=== PATIENT | male | born 1935 | race Caucasian/White ===

== ENCOUNTER → 2019-08-29 14:24 | Outpatient (CLI) | payer MEDICARE, OTHER, SELFPAY ==
[2019-08-30 09:55] LABS: COVID19 Sendout Not Detected (Not Detect)
== END ==
PROVIDERS: Visit Provider Student in an Organized Health Care Education/Training Program
DX: Z01.812 Encounter for preprocedural laboratory examination (principal)
CPT/HCPCS: 87635

== ENCOUNTER 2019-09-01 09:09 | Day surgery (SDC) | payer MEDICARE, OTHER, SELFPAY ==
[2019-09-01] MEDS: PROPARACAINE 0.5% OPHTH SOL 2 DROPS EYE-OP (10:21)
[2019-09-01] MEDS: CATARACT EYE COMPOUND (10 DROPS/SYRINGE) 3 DROPS EYE-OP (10:22)
[2019-09-01 10:25] VITALS: BP 137/79; PULSE 75; RESP 20; TEMP 36.2; O2SAT 98; BMI 30.7
--- NOTE | 2019-09-01 10:27 | SUR.OPER ---
Supine on eye stretcher, head on extension cradle secured with tape. Arms tucked at sides with blanket. Pillow under knees.
--- NOTE | 2019-09-01 10:39 | PM.PREOP ---
Pre-operative Note COVID-19 COVID-19 status: Negative Result date/Date tested (Pos, Neg/Pending): 08/29/19 Interval Note History & Physical reviewed/Exam performed by Physician: Yes Changes to H&P: No
[2019-09-01] MEDS: PHENYLEPHRINE/LIDOCAINE VIAL (OR) 0.2 ML EYE-OP (11:10)
[2019-09-01] MEDS: CHONDROIDTIN/SOD HYALURONATE 1.05 ML SYRINGE INTRAOCULA (11:10)
[2019-09-01] MEDS: TETRACAINE 0.5% OPHTH DROPS 4 ML 2 DROPS EYE-OP (11:10)
[2019-09-01] MEDS: BALANCED SALT IRRIG SOLN NO.2 500 ML, EPINEPHrine 1 MG IRR (11:11)
[2019-09-01] MEDS: MOXIFLOXACIN INJ 5 MG/ML VIAL EYE-OP (11:12)
--- NOTE | 2019-09-01 11:30 | PM.OP.1 ---
Procedure & Clinicians Procedure: Cataract extraction with intraocular lens implant, right. Same procedure as scheduled: Yes Indications: Visually significant age related nuclear sclerosis Surgeon: Sami Partida Click Yes if Unassisted: Yes Anesthesia Type: MAC +/- Operative Notes Procedure in detail: The patient was brought to the operating suite. The correct patient, surgical site and lens were confirmed. 0.5 % tetracaine drops were placed in the right eye. The patient was prepped and draped in the typical sterile manner. A lid speculum was placed in the eye. 2% lidocaine was placed on the eye. A paracentesis port was created with a side-port blade. 0.1 mL of 1% preservative free lidocaine with phenylephrine was injected into the anterior chamber. Viscoelastic was injected into the anterior chamber. A 2.6mm keratome was used to create a clear corneal temporal incision. Cystotome and Utrata forceps were used to create a continuous curvilinear capsulorrhexis. Balanced salt solution was used to hydrodissect the nucleus. Phacoemulsification was used to remove the lens. The capsular bag was inflated with viscoelastic. A Jin ZCBOO +21.0D lens was inserted into the capsule. Viscoelastic was removed and the wound hydrated. The wound was found to be leak free and the eye was assessed to be at normal physiologic pressure. 0.1mL Moxifloxacin (5mg/mL) preservative free was injected into the anterior chamber. The lid speculum was removed and the patient left the operating room in excellent condition. Complications: none Post-operative Condition: stable Disposition: same day surgery
[2019-09-01 11:34] VITALS: BP 134/82; PULSE 62; RESP 12; TEMP 36.1; O2SAT 96
== END 2019-09-01 11:50 | disposition home or self-care (01) ==
PROVIDERS: PCP Family Medicine; Referring Provider Family Medicine; Visit Provider Ophthalmology
PROC: (CPT 66984; principal; 2019-09-01 10:30)
DX: H25.11 Age-related nuclear cataract, right eye (principal); H40.011 Open angle with borderline findings, low risk, right eye; D31.31 Benign neoplasm of right choroid
CPT/HCPCS: 66984; J0171; J2250

== ENCOUNTER 2019-09-15 09:53 | Day surgery (SDC) | payer MEDICARE, OTHER, SELFPAY ==
[2019-09-15] MEDS: PROPARACAINE 0.5% OPHTH SOL 2 DROPS EYE-OP (10:32)
[2019-09-15] MEDS: CATARACT EYE COMPOUND (10 DROPS/SYRINGE) 3 DROPS EYE-OP (10:32)
[2019-09-15 10:38] VITALS: BP 124/78; PULSE 84; RESP 16; TEMP 36.2; O2SAT 98; BMI 31.5
[2019-09-15] MEDS: BALANCED SALT IRRIG SOLN NO.2 500 ML, EPINEPHrine 1 MG IRR (12:04)
[2019-09-15] MEDS: MOXIFLOXACIN INJ 5 MG/ML VIAL EYE-OP (12:05)
[2019-09-15] MEDS: LIDOCAINE 2% INJ SDV 2 ML INJ (12:05)
[2019-09-15] MEDS: CHONDROIDTIN/SOD HYALURONATE 1.05 ML SYRINGE INTRAOCULA (12:06)
[2019-09-15] MEDS: TETRACAINE 0.5% OPHTH DROPS 4 ML 2 DROPS EYE-OP (12:06)
[2019-09-15] MEDS: PHENYLEPHRINE/LIDOCAINE VIAL (OR) 0.2 ML EYE-OP (12:06)
[2019-09-15] MEDS: BALANCED SALT IRRIG SOLN NO.2 15 ML 5 ML IRR (12:06)
--- NOTE | 2019-09-15 12:21 | PM.OP.1 ---
Procedure & Clinicians Procedure: Cataract extraction with intraocular lens implant, left. Same procedure as scheduled: Yes Indications: Age related visually significant nuclear sclerosis. Surgeon: Sami Partida Click Yes if Unassisted: Yes Anesthesia Type: MAC +/- Operative Notes Procedure in detail: The patient was brought to the operating suite. The correct patient, surgical site and lens were confirmed. 0.5 % tetracaine drops were placed in the left eye. The patient was prepped and draped in the typical sterile manner. A lid speculum was placed in the eye. 2% lidocaine was placed on the eye. A paracentesis port was created with a side-port blade. 0.1 mL of 1% preservative free lidocaine with phenylephrine was injected into the anterior chamber. Viscoelastic was injected into the anterior chamber. A 2.6mm keratome was used to create a clear corneal temporal incision. Cystotome and Utrata forceps were used to create a continuous curvilinear capsulorrhexis. Balanced salt solution was used to hydrodissect the nucleus. Phacoemulsification was used to remove the lens. The capsular bag was inflated with viscoelastic. A Jin ZCBOO +21.0 D lens was inserted into the capsule. Viscoelastic was removed and the wound hydrated. The wound was found to be leak free and the eye was assessed to be at normal physiologic pressure. 0.1mL Moxifloxacin (5mg/mL) preservative free was injected into the anterior chamber. The lid speculum was removed and the patient left the operating room in excellent condition. Complications: none Post-operative Condition: stable Disposition: same day surgery
[2019-09-15 12:32] VITALS: BP 126/71; PULSE 70; RESP 14; TEMP 36.1; O2SAT 95
== END 2019-09-15 12:45 | disposition home or self-care (01) ==
PROVIDERS: PCP Family Medicine; Referring Provider Ophthalmology; Visit Provider Ophthalmology
PROC: (CPT 66984; principal; 2019-09-15 11:15)
DX: H25.12 Age-related nuclear cataract, left eye (principal)
CPT/HCPCS: 66984; J0171; J2250

== ENCOUNTER → 2022-09-08 14:56 | Outpatient (CLI) | payer MEDICARE, OTHER, SELFPAY ==
[2022-09-08 16:56] LABS: Prostate Specific Antigen 0.993 ng/mL (0.10-4.00)
== END ==
PROVIDERS: PCP Family Medicine; Referring Provider Urology; Visit Provider Urology
DX: R31.9 Hematuria, unspecified (principal)
CPT/HCPCS: 36415; 84153

== ENCOUNTER → 2022-12-19 14:36 | Outpatient (CLI) | payer MEDICARE, OTHER, SELFPAY | PROVIDERS: PCP Family Medicine; Referring Provider Family Medicine; Visit Provider Family Medicine | DX: R79.89 Other specified abnormal findings of blood chemistry (principal); D63.8 Anemia in other chronic diseases classified elsewhere | CPT/HCPCS: 36415; 88184 ==

== ENCOUNTER 2023-06-28 13:26 | Emergency (ER) | payer MEDICARE, OTHER, SELFPAY ==
[2023-06-28] VITALS (20 sets, daily range): BP systolic 77–149; BP diastolic 43–79; PULSE 69–111; RESP 18–39; TEMP 36.3; O2SAT 83–100; BMI 31.2
--- NOTE | 2023-06-28 13:57 | ED.WOUNDLAC ---
HPI - Wound/Laceration General Chief Complaint: Wound/Laceration Stated Complaint: Leg lac Time Seen by Provider: 06/28/23 13:30 Source: patient Mode of arrival: Ambulatory History of Present Illness HPI narrative: Patient is an 87-year-old male. Is on anticoagulation. Is here for evaluation of a fall when he states he was working in his shop. He fell backwards and cut his leg on a piece of wood. Reports no other injuries from the event. Denied hit his head. Is up-to-date on tetanus. Wound was bandaged prior to arrival here to the ER. Patient reports no other injuries from the event. No knee or ankle or hip pain. Related Data Home Medications Medication Instructions Recorded Confirmed Fish Oil 1,000 mg PO Q DAY ##0 07/29/10 10/11/19 CA PANTOTHENATE/FOLIC ACID/VIT 1 tab PO QDAY ##0 07/09/12 10/11/19 (MULTIVITAMIN) FERROUS SULFATE 325 mg PO Q DAY ##0 07/09/12 10/11/19 pravastatin 40 mg tablet 40 mg PO HS ##0 08/28/16 10/11/19 fluticasone 250 mcg-salmeterol 50 1 puff INH BID PRN asthma 09/15/19 10/11/19 mcg/dose blistr powdr for inhalation (Advair Diskus) glipizide 5 mg tablet 5 mg PO DAILY 09/15/19 10/11/19 metoprolol succinate 25 mg capsule 25 mg PO DAILY 09/15/19 10/11/19 sprinkle, ext. release 24 hr losartan 25 mg tablet 25 mg PO DAILY 10/11/19 10/11/19 Allergies Allergy/AdvReac Type Severity Reaction Status Date / Time Sulfa (Sulfonamide Allergy Severe HALLUCINATI Verified 10/11/19 13:01 Antibiotics) ON [SULFA (SULFONAMIDE ANTIBIOTICS)] latex [LATEX] Allergy Intermediate BLISTERS, Verified 10/11/19 13:01 SKIN IRRITATION atorvastatin [ATORVASTATIN] Allergy Unknown ACHES; Verified 10/11/19 13:01 FEVERISH Review of Systems Review of Systems Narrative: See HPI Patient History Medical History Prostate cancer Prostate cancer Stress incontinence Male erectile disorder Family History (Updated 07/22/16 @ 00:00 by Conversion Provider) Grandfather Heart disease Grandmother Cancer Mother Cancer Grandfather Heart disease Grandmother Cancer Social History household members: spouse Smoking Status: Never smoker Smoking Status: Never smoker alcohol intake frequency: holidays/special occasions only Substance Use Type: does not use Exam Initial Vital Signs Initial Vital Signs: Vital Signs Pulse Rate 81 06/28/23 13:32 Blood Pressure 149/70 H 06/28/23 13:32 Pulse Oximetry 88 L 06/28/23 13:32 Skin Other: Patient with a very large laceration to the anterior aspect of his left cantu. In the proximal and medial 1/3 of the cantu he has more what appears to be skin tears. The distal 1/3 is a deeper cut that is down to the fascia. It does not involve the bone. Does have quite a bit of oozing. Neuro Sensory Exam: no sensory deficits noted Extrem Other: Left knee, left ankle and left hip unremarkable. Procedures Laceration Repair Laceration 1: Site: lower extremity Side (If applicable): left Size (cm): 20 Description: linear and flap Depth: involves muscle layer Local Anesthetic: lidocaine 1% and with epi Amount of anesthesia used (mL): 10 Pre-repair: wound explored and deep structures intact Skin layer closed with: nylon Skin layer suture size: 3-0 Number of sutures: 10 Technique: simple, interrupted Subcutaneous layer closed with: vicryl Subcutaneous layer suture size: 3-0 Number of sutures: 1 Technique: running Course Orders Ordered: Discontinued Medications Bacitracin (Bacitracin Oint 0.9 Gm Pckt) 1 applic TOP NOW ONE Stop: 06/28/23 16:14 Lidocaine/Epinephrine (Lidocaine 2% W/Epi Inj 10 Ml Vial) 20 ml INJ INTRA-OP ONE Stop: 06/28/23 13:31 Last Admin: 06/28/23 14:08 Dose: 20 ml Documented By: SEVERINO Vital Signs Vital signs: Vital Signs - 8 hr 06/28/23 13:32 06/28/23 13:32 06/28/23 13:33 Temperature 97.3 F L Pulse Rate 81 91 H Respiratory Rate 18 Blood Pressure 149/70 H 149/71 H Pulse Oximetry 88 L 91 Oxygen Delivery Method Room Air 06/28/23 13:33 06/28/23 13:33 06/28/23 14:00 Temperature Pulse Rate 69 76 Respiratory Rate 20 Blood Pressure 149/71 H Pulse Oximetry 95 95 Oxygen Delivery Method Room Air 06/28/23 14:00 06/28/23 14:30 06/28/23 14:30 Temperature Pulse Rate 91 H Respiratory Rate 19 Blood Pressure 136/62 136/63 Pulse Oximetry 83 L Oxygen Delivery Method 06/28/23 15:00 06/28/23 15:00 Temperature Pulse Rate 78 Respiratory Rate 25 H Blood Pressure 128/58 L Pulse Oximetry 100 Oxygen Delivery Method Room Air MDM - Wound/Laceration MDM Narrative Medical decision making narrative: Bleeding was stopped with time and compression. The upper portion of the wound is a skin tear. This was closed with Steri-Strips. He was got a very long laceration to the anterior portion of his left tibia. It was closed as described above. No foreign body noted. He was neurovascularly intact. Will discharge patient home with care instructions and return precautions. He expressed understanding and agreement with plan. Discharge Plan Departure Patient Disposition: Home Clinical Impression: Laceration of leg, Skin tear Instructions: DI for Laceration Repair Activity Restrictions/Additional Instructions: There were stitches that were placed today. These are going to need to be removed in 7-10 days. Either your primary doctor with the walk-in clinic and do this. After 24 hours you can remove the bandage that was placed today but leave the Steri-Strips/butterfly bandages in place until you follow-up in 1 week to have the stitches removed. After 24 hours you can shower like normal. Return to the emergency department for new or worsening symptoms. Prescriptions: No Action Fish Oil 1,000 mg PO Q DAY Qty: 0 CA PANTOTHENATE/FOLIC ACID/VIT (MULTIVITAMIN) 1 tab PO QDAY Qty: 0 FERROUS SULFATE 325 mg PO Q DAY Qty: 0 pravastatin 40 MG tablet 40 mg PO HS Qty: 0 glipizide 5 mg Tablet 5 mg PO DAILY metoprolol succinate 25 mg Capsule,Sprinkle,Er 24hr 25 mg PO DAILY fluticasone propion-salmeterol [Advair Diskus] 250 MCG/50 MCG blister with device 1 puff INH BID PRN (Reason: asthma) losartan 25 mg tablet 25 mg PO DAILY Referrals: Brooke,Lizzie E, MD [Primary Care Provider] - Stand Alone Forms: Patient Portal/API
[2023-06-28] MEDS: LIDOCAINE 2% W/EPI INJ 10 ML VIAL 20 ML INJ (14:08)
--- NOTE | 2023-06-28 15:05 | PC.NURSE ---
Patient has intermittent desaturations to as low as 74% with good waveform.
[2023-06-28] MEDS: BACITRACIN OINT 0.9 GM PCKT 1 APPLIC TOP (17:26)
[2023-06-28] MEDS: SODIUM CHLORIDE 0.9% 1,000 ML 1000 ML IV (18:16)
--- NOTE | 2023-06-28 18:18 | PC.NURSE ---
ambulated pt to bathroom with no complaints. after using the bathroom pt states he felt light headed. This RETAIL PLANNER asked pt to sit down on a chair near bathroom and RETAIL PLANNER took vitals. Blood Pressure was 96/46 while sitting and 77/43 while standing. REUBEN Peng made aware. pt transported by wheelchair back to room and assisted back into bed.
[2023-06-28 18:22] LABS: Hematocrit 29.9 % (41-53); Mean Corpuscular HGB Conc 33.5 % (30-36); Mean Corpuscular Hemoglobin 34.7 PG (26-34); Mean Corpuscular Volume 103.5 fL (80-100); Platelet Count 108 X10^3/uL (150-400); Red Blood Cell Count 2.89 X10^6/uL (4.5-5.9); Red Cell Distribution Width 16.1 % (11.6-14.8); White Blood Cell Count 14.2 X10^3/uL (4.5-11.0)
[2023-06-28 18:23] LABS: Add Manual Diff / Slide Review YES
[2023-06-28 18:33] LABS: Neutrophils Absolute Manual 9514 /uL (3000-5900); RBC Morphology Normal Morphology; Total Cells Counted 100
--- NOTE | 2023-06-28 18:40 | ED.WOUNDLAC ---
HPI - Wound/Laceration General Chief Complaint: Wound/Laceration Stated Complaint: Leg lac Time Seen by Provider: 06/28/23 13:30 Source: patient Mode of arrival: Ambulatory Related Data Home Medications Medication Instructions Recorded Confirmed Fish Oil 1,000 mg PO Q DAY ##0 07/29/10 10/11/19 CA PANTOTHENATE/FOLIC ACID/VIT 1 tab PO QDAY ##0 07/09/12 10/11/19 (MULTIVITAMIN) FERROUS SULFATE 325 mg PO Q DAY ##0 07/09/12 10/11/19 pravastatin 40 mg tablet 40 mg PO HS ##0 08/28/16 10/11/19 fluticasone 250 mcg-salmeterol 50 1 puff INH BID PRN asthma 09/15/19 10/11/19 mcg/dose blistr powdr for inhalation (Advair Diskus) glipizide 5 mg tablet 5 mg PO DAILY 09/15/19 10/11/19 metoprolol succinate 25 mg capsule 25 mg PO DAILY 09/15/19 10/11/19 sprinkle, ext. release 24 hr losartan 25 mg tablet 25 mg PO DAILY 10/11/19 10/11/19 Previous Rx's Medication Instructions Recorded cephalexin 500 mg capsule 500 mg PO QID deep wound, 06/28/23 prophylaxis 5 days #20 caps Allergies Allergy/AdvReac Type Severity Reaction Status Date / Time Sulfa (Sulfonamide Allergy Severe HALLUCINATI Verified 10/11/19 13:01 Antibiotics) ON [SULFA (SULFONAMIDE ANTIBIOTICS)] latex [LATEX] Allergy Intermediate BLISTERS, Verified 10/11/19 13:01 SKIN IRRITATION atorvastatin [ATORVASTATIN] Allergy Unknown ACHES; Verified 10/11/19 13:01 FEVERISH Patient History Medical History Prostate cancer Prostate cancer Stress incontinence Male erectile disorder Family History (Updated 07/22/16 @ 00:00 by Conversion Provider) Grandfather Heart disease Grandmother Cancer Mother Cancer Grandfather Heart disease Grandmother Cancer Social History household members: spouse Smoking Status: Never smoker Smoking Status: Never smoker alcohol intake frequency: holidays/special occasions only Substance Use Type: does not use Exam Initial Vital Signs Initial Vital Signs: Vital Signs Pulse Rate 81 06/28/23 13:32 Blood Pressure 149/70 H 06/28/23 13:32 Pulse Oximetry 88 L 06/28/23 13:32 Course Orders Ordered: Discontinued Medications Bacitracin (Bacitracin Oint 0.9 Gm Pckt) 1 applic TOP NOW ONE Stop: 06/28/23 16:14 Last Admin: 06/28/23 17:26 Dose: 1 applic Documented By: SEVERINO Cephalexin HCl (Cephalexin 250 Mg Capsule) 500 mg PO NOW ONE Stop: 06/28/23 18:45 Last Admin: 06/28/23 18:53 Dose: 500 mg Documented By: SEVERINO Sodium Chloride (Normal Saline 0.9%) 1,000 mls @ 1,000 mls/hr IV BOLUS ONE Stop: 06/28/23 19:11 Last Infusion: 06/28/23 18:50 Dose: Infused Documented By: Admin: 06/28/23 18:16 Dose: 1,000 mls/hr Documented By: TRAVIS Lidocaine/Epinephrine (Lidocaine 2% W/Epi Inj 10 Ml Vial) 20 ml INJ INTRA-OP ONE Stop: 06/28/23 13:31 Last Admin: 06/28/23 14:08 Dose: 20 ml Documented By: SEVERINO Vital Signs Vital signs: Vital Signs - 8 hr 06/28/23 13:32 06/28/23 13:32 06/28/23 13:33 Temperature 97.3 F L Pulse Rate 81 91 H Respiratory Rate 18 Blood Pressure 149/70 H 149/71 H Pulse Oximetry 88 L 91 Oxygen Delivery Method Room Air 06/28/23 13:33 06/28/23 13:33 06/28/23 14:00 Temperature Pulse Rate 69 76 Respiratory Rate 20 Blood Pressure 149/71 H Pulse Oximetry 95 95 Oxygen Delivery Method Room Air 06/28/23 14:00 06/28/23 14:30 06/28/23 14:30 Temperature Pulse Rate 91 H Respiratory Rate 19 Blood Pressure 136/62 136/63 Pulse Oximetry 83 L Oxygen Delivery Method 06/28/23 15:00 06/28/23 15:00 06/28/23 18:09 Temperature Pulse Rate 78 Respiratory Rate 25 H Blood Pressure 128/58 L 77/43 L Pulse Oximetry 100 Oxygen Delivery Method Room Air 06/28/23 18:16 06/28/23 18:17 06/28/23 18:17 Temperature Pulse Rate 97 H 92 H Respiratory Rate Blood Pressure 120/57 L Pulse Oximetry 93 93 Oxygen Delivery Method 06/28/23 18:18 06/28/23 18:18 Temperature Pulse Rate 86 Respiratory Rate 26 H Blood Pressure 146/67 H Pulse Oximetry 93 Oxygen Delivery Method MDM - Wound/Laceration Lab Data 06/28/23 13:50 Labs: Lab Results 06/28/23 Range/Units 13:50 WBC 14.2 H (4.5-11.0) X10^3/uL RBC 2.89 L (4.5-5.9) X10^6/uL Hgb 10.0 L (13.5-17.5) g/dL Hct 29.9 L (41-53) % MCV 103.5 H (80-100) fL MCH 34.7 H (26-34) PG MCHC 33.5 (30-36) % RDW 16.1 H (11.6-14.8) % Plt Count 108 L (150-400) X10^3/uL Neut % (Auto) Not Reportable Lymph % (Auto) Not Reportable [place] % (Auto) Not Reportable Eos % (Auto) Not Reportable Baso % (Auto) Not Reportable Lymph # (Auto) Not Reportable [place] # (Auto) Not Reportable Baso # (Auto) Not Reportable Total Counted 100 Seg Neutrophils % 66.0 (38-70) % Band Neutrophils % 1.0 L (3-7) % Lymphocytes % (Manual) 8.0 L (25-45) % Monocytes % (Manual) 8.0 (2-11) % Eosinophils % (Manual) 1.0 L (2-4) % Basophils % (Manual) 1.0 (0-1) % Metamyelocytes % 15.0 H (-0) % Neutrophils # (Manual) 9514 H (0900-2462) /uL RBC Morphology Normal morphology PT 12.5 (9.4-12.5) SECONDS INR 1.1 (0.9-1.3) MDM Narrative Medical decision making narrative: Kev, 06/28/2023 at 18 30. Transfer of care note, verbal signout from Dr Lee. 87-year-old male on chronic warfarin anticoagulation, sustained left anterior foreleg soft tissue laceration injury on his home [place], oozing bleeding, proximal portion per verbal report from Dr. Guillermo was that it would not require suturing, however distal portion required multilayer closure. Per verbal report from Dr. Lee and nursing, patient went to the bathroom to urinate, was then walking back to ED room felt dizzy, systolic blood pressure 90 low, placed in bed, felt improved, labs sent CBC and INR unremarkable, IV fluid normal saline bolus ordered. Patient is eating a sandwich. Deep wound consider possibility of infection, NKDA, we will give oral Keflex dose now, prescription for Keflex for discharge. Assumed care [place] better, wanted to go home, home with rosamarai, discharge Rx for Keflex for a few more days for wound infection prophylaxis. Apparently no longer taking warfarin or not taking warfarin. Bleeding seems controlled. Home with family per patient request. Wound check advised in follow up with PCP. Discharge Plan Departure Patient Disposition: Home Clinical Impression: Laceration of leg, Skin tear Instructions: DI for Laceration Repair Activity Restrictions/Additional Instructions: There were stitches that were placed today. These are going to need to be removed in 7-10 days. Either your primary doctor with the walk-in clinic and do this. After 24 hours you can remove the bandage that was placed today but leave the Steri-Strips/butterfly bandages in place until you follow-up in 1 week to have the stitches removed. After 24 hours you can shower like normal. Return to the emergency department for new or worsening symptoms. Prescriptions: New cephalexin 500 mg capsule 500 mg PO QID 5 Days Qty: 20 0RF No Action Fish Oil 1,000 mg PO Q DAY Qty: 0 CA PANTOTHENATE/FOLIC ACID/VIT (MULTIVITAMIN) 1 tab PO QDAY Qty: 0 FERROUS SULFATE 325 mg PO Q DAY Qty: 0 pravastatin 40 MG tablet 40 mg PO HS Qty: 0 glipizide 5 mg Tablet 5 mg PO DAILY metoprolol succinate 25 mg Capsule,Sprinkle,Er 24hr 25 mg PO DAILY fluticasone propion-salmeterol [Advair Diskus] 250 MCG/50 MCG blister with device 1 puff INH BID PRN (Reason: asthma) losartan 25 mg tablet 25 mg PO DAILY Referrals: Lizzie Cox MD [Primary Care Provider] - Stand Alone Forms: Patient Portal/API
[2023-06-28] MEDS: cephALEXin 250 MG CAPSULE 500 MG PO (18:53)
[2023-06-28 18:54] LABS: INR 1.1 (0.9-1.3); Prothrombin Time 12.5 SECONDS (9.4-12.5)
--- NOTE | 2023-06-28 19:45 | PC.NURSE ---
Wrapped left lower leg wound with with 2 abd pads and 2 four inch jamey wraps. Pt and family instructed on site care and wound care instructions.
--- NOTE | 2023-06-28 19:48 | PC.NURSE ---
FERN CUTTER note: Patient walked around the unit. Told patient to please tell me if he felt dizzy, weak, or lightheaded. Patient denied. Patient was able to have a conversation while walking. Blood pressure when back into bed was 123/61. Told REUBEN Sotelo
== END 2023-06-28 20:52 | disposition home or self-care (01) ==
PROVIDERS: Emergency Medicine; Emergency Provider Emergency Medicine; PCP Family Medicine
DX: S81.812A Laceration without foreign body, left lower leg, initial encounter (principal); W45.8XXA Other foreign body or object entering through skin, initial encounter; Z79.01 Long term (current) use of anticoagulants
CPT/HCPCS: 12005; 82962; 85007; 85025; 85610; 99283; 99284